=== PATIENT | male | born 1990 | race Caucasian/White ===

== ENCOUNTER 2021-02-02 10:11 | Emergency (ER) | payer BC ==
[~2021-02-02 10:11] MED LIST: FLORASTOR250 MG PO; IBUPROFEN600 MG PO; POLYSPORIN OI28.3 G1 TP; ZOFRAN ODT 4 MG4 MG SL
[2021-02-02] MEDS ORDERED: CEPHALEXIN500 MG PO (11:34)
[2021-02-06] MEDS ORDERED: SUBOXONE 8 MG-1 EACH SL (08:38)
== END 2021-02-02 11:45 | disposition home or self-care (01) ==
LOC: ER1 10:11
DX: S60.451A Superficial foreign body of left index finger, initial encounter (principal); W20.8XXA Other cause of strike by thrown, projected or falling object, initial encounter; Y92.89 Other specified places as the place of occurrence of the external cause; Y99.0 Civilian activity done for income or pay
CPT/HCPCS: 73130; 99283

== ENCOUNTER → 2021-02-06 | Day surgery (SDC) | payer BC ==
[~2021-02-06] VITALS: Ht 185.4 cm; Wt 92.5 kg
[~2021-02-06] MED LIST changes: +CEPHALEXIN500 MG PO; +SUBOXONE 8 MG-1 EACH SL
== END | disposition home or self-care (01) ==
LOC: OR 07:59
DX: S61.241A Puncture wound with foreign body of left index finger without damage to nail, initial encounter (principal); W45.0XXA Nail entering through skin, initial encounter; Y92.9 Unspecified place or not applicable; Y99.0 Civilian activity done for income or pay; Z20.822 Contact with and (suspected) exposure to COVID-19
CPT/HCPCS: 73140; 76000; J0690; J1100; J1885; J2001; J2250; J2405; J2704; J3010; J3370; J7120